=== PATIENT | male | born 1950 | race Caucasian/White ===

== ENCOUNTER 2017-02-24 15:07 | Emergency (ER) | payer MEDICARE ==
--- NOTE | ~2017-02-24 | EKG ---
PATIENT: CLIFTON HUSSEIN UNIT #: [id number] Ventricular Rate: 68 BPM Atrial Rate: 68 BPM P-R Interval: 170 ms QRS Duration: 152 ms Q-T Interval: 444 ms QTC Calculation(Bezet): 472 ms P Linn: 65 degrees Calculated R Linn: 76 degrees Calculated T Linn: 51 degrees Diagnosis Line: Sinus rhythm with occasional Premature ventricular Diagnosis Line: complexes Diagnosis Line: Right bundle branch block Diagnosis Line: Abnormal ECG Diagnosis Line: No previous ECGs available Diagnosis Line: Confirmed by MUNA IZAGUIRRE MD ([id number]) on Diagnosis Line: 02/26/2017 10:00:05 PM INTERPRETING MD: MARIBELL
--- NOTE | ~2017-02-24 | CT71 ---
[facility]. [place] A Service of [facility] RADIOLOGY TEXT RESULTS PATIENT: CLIFTON HUSSEIN LOCATION: SED : 46 UNIT #: [id number] AGE: [address]: Armando Myrick MD SEX: M ORDER DR: [id number] [place] [address] [id number] E MR#: [id number] Acc #: [id number] NAME: CLIFTON HUSSEIN : 1950 SEX: M STUDY DATE/TIME: 02/24/2017 15:43 UNIT: SED ROOM: STUDY DESCRIPTION: CT Head Wo Contrast Attending Physician: Armando Myrick M.D. Ordering Physician: Armando Myrick M.D. MEDICAL IMAGING REPORT This report is preliminary unless electronic signature is present. EXAM CT head INDICATIONS Slurred speech and weakness, 4-day duration. Confusion. TECHNIQUE CT head without contrast. This CT exam was performed with one or more of the following radiation dose reduction techniques: automatic exposure control, adjustment of mA and/or kV according to patient size, and iterative reconstruction. COMPARISON None available. FINDINGS There is a hyperdense area within the left basal ganglia measuring 3 x 1.7 cm. This has some mild localized mass effect and is most consistent with a subacute infarct. There is no hemorrhagic transformation. No midline shift. No significant mass effect on the ventricles. There is some mild atrophy and chronic small vessel change. There is a possible small infarct in the anterior right frontal lobe adjacent to the anterior horn of the right lateral ventricle. No extraaxial collections. No acute osseous abnormalities. The ventricles and basilar cisterns are normal in size and configuration. IMPRESSION 1. 3 cm hypodense area in the left basal ganglia has appearance of a subacute infarct. Consider MRI to confirm. 2. Subtle area of boswell-white matter differentiation loss in the anterior STS. [place] A Service [facility] RADIOLOGY TEXT RESULTS PATIENT: CLIFTON HUSSEIN LOCATION: SED : 46 UNIT #: [id number] AGE: [address]: Armando Myrick MD SEX: M ORDER DR: right frontal lobe may also represent a second area of subacute ischemia. 3. There is no significant mass effect or midline shift. Findings were called to the ER physician at 16:12 on 02/24/2017. STAT * RESULT Dictated by... Paul Burton M.D. THIS IS AN ELECTRONICALLY VERIFIED REPORT Paul Burton M.D. at 02/24/2017 8:00 PM RPC/alfredo TD: 02/24/2017 16:17 JOB #: [id number] MEDICAL IMAGING REPORT Page 1 of 1
--- NOTE | ~2017-02-24 | CR72 ---
[facility]. [facility] A Service of [facility] RADIOLOGY TEXT RESULTS PATIENT: CLIFTON HUSSEIN LOCATION: SED : 46 UNIT #: [id number] AGE: [address]: Armando Myrick MD SEX: M ORDER DR: [id number] [place] [address] [id number] E MR#: [id number] Acc #: [id number] NAME: CLIFTON HUSSEIN : 1950 SEX: M STUDY DATE/TIME: 02/24/2017 15:35 UNIT: SED ROOM: STUDY DESCRIPTION: CR Chest Single View Portable Attending Physician: Armando Myrick M.D. Ordering Physician: Armando Myrick M.D. MEDICAL IMAGING REPORT This report is preliminary unless electronic signature is present. EXAM Single view chest. INDICATION Shortness of air. Weakness. Slurred speech for 4 days. TECHNIQUE Single portable AP view of the chest without comparison. FINDINGS Heart and mediastinal contours are normal. The lungs are clear. No pleural effusions. IMPRESSION No acute cardiopulmonary findings. Dictated by... Paul Burton M.D. THIS IS AN ELECTRONICALLY VERIFIED REPORT Paul Burton M.D. at 02/25/2017 5:17 PM AMPARO/cristy TD: 02/25/2017 17:02 JOB #: [id number] MEDICAL IMAGING REPORT Page 1 of 1
[2017-02-24] MEDS ORDERED: ASPIRIN81 MG (15:14)
[2017-02-24 15:55] LABS: BASOPHIL# 0.1 X10e3 (0-0.3); EOSINOPHIL# 0.1 X10e3 (0-0.7); EOSINOPHIL% 1.7 % (0.0-7.0); HEMATOCRIT 44.5 % (38.0-50.0); HEMOGLOBIN 15.1 gm/dL (13.0-16.0); LYMPHOCYTE# 1.2 X10e3 (1.0-3.5); LYMPHOCYTE% 14.6 % (17.0-45.0); MEAN CELL VOLUME 91.1 FL (83-96); MEAN CORPUSCULAR HEMOGLOBIN 30.9 PG (28-34); MEAN CORPUSCULAR HGB CONC 33.9 g/dL (30-36); MEAN PLATELET VOLUME 11.6 FL (6.5-11.5); MONOCYTE# 0.8 X10e3 (0-1.0); MONOCYTE% 9.2 % (3.0-12.0); NEUTROPHIL# 6.2 X10e3 (1.5-7.1); NEUTROPHIL% 73.5 % (40-75); PLATELET COUNT 110 X10e3 (140-420); RED BLOOD COUNT 4.89 X10e (3.90-5.60); RED CELL DISTRIBUTION WIDTH 13.9 % (11.0-15.5); WHITE BLOOD COUNT 8.5 X10e3 (4.0-10.5)
[2017-02-24 15:56] LABS: POC - CKMB 1.2 ng/mL (0.0-7.9); POC - TROPONIN <0.05 ng/mL (<=0.05)
[2017-02-24 16:02] LABS: DIFF IND NO
[2017-02-24 16:11] LABS: INR 1.1; PROTHROMBIN TIME (PATIENT) 12.9 SECONDS (9.5-12.4)
[2017-02-24 16:22] LABS: ALBUMIN SERUM 4.3 g/dL (3.5-5.0); ALKALINE PHOSPHATASE 77 U/L (32-92); ALT (SGPT) 17 U/L (10-40); AST (SGOT) 22 U/L (10-42); BILIRUBIN,TOTAL 0.9 mg/dL (0.2-2.0); BLOOD UREA NITROGEN 15 mg/dL (9-23); BUN/CREATININE RATIO 16.66; CALCIUM SERUM 9.1 mg/dL (8.4-10.2); CARBON DIOXIDE 31 mmol/L (22-31); CHLORIDE 103 mmol/L (100-111); CREATININE SERUM 0.9 mg/dL (0.6-1.4); GLOM FILT RATE Estimated 87.5 mL/min (>60); GLUCOSE FASTING 94 mg/dL (70-110); POTASSIUM 3.9 mmol/L (3.5-5.1); PROTEIN TOTAL SERUM 7.5 g/dL (6.0-8.3); SODIUM 141 mmol/L (135-145)
[2017-02-24 16:23] LABS: BILIRUBIN, DIRECT <0.1 mg/dL (0.0-0.2); BILIRUBIN,INDIRECT 0.8 mg/dL (0.0-0.9)
== END 2017-02-25 07:54 ==
LOC: SED 15:07
PROVIDERS: Emergency Medicine
DX: I63.9 Cerebral infarction, unspecified (principal); I10 Essential (primary) hypertension; E78.5 Hyperlipidemia, unspecified; F17.210 Nicotine dependence, cigarettes, uncomplicated; Z90.49 Acquired absence of other specified parts of digestive tract
CPT/HCPCS: 36415; 70450; 71010; 80048; 80076; 82553; 82947; 84484; 85025; 85610; 85730; 93005; 99291